=== PATIENT | female | born 1960 | race Caucasian/White ===

== ENCOUNTER 2017-11-02 06:56 | Day surgery (SDC) | payer BC ==
[2017-11-02] MEDS ORDERED: LIDOCAINE HCL 1% MPF SOL ONE (07:33)
[2017-11-02] MEDS ORDERED: PROPOFOL 500 MG/50 ML EMU IV ONE (07:33)
[2017-11-02 08:36] VITALS: TEMP 97.6
[2017-11-02 08:52] VITALS: PULSE 50; RESP 20; O2SAT 99
[2017-11-02 09:03] VITALS: BP 130/79
== END 2017-11-02 09:13 | disposition home or self-care (01) ==
LOC: SURG 06:56
PROVIDERS: ATTEND Internal Medicine Gastroenterology
DX: R10.9 Unspecified abdominal pain (principal); R11.2 Nausea with vomiting, unspecified; Q39.8 Other congenital malformations of esophagus; K44.9 Diaphragmatic hernia without obstruction or gangrene
CPT/HCPCS: 99001; J2001; J2704